=== PATIENT | female | born 1985 | race Two or more races ===

== ENCOUNTER 2020-04-02 16:49 | Emergency (ER) | payer OTHER ==
[~2020-04-02] VITALS: Ht 167.6 cm; Wt 54.4 kg
[2020-04-02] MEDS ORDERED: Lidocaine 1% Plain 30 ml INJ ONE (17:00)
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
[2020-04-02 17:08] VITALS: BP 128/79
[2020-04-02] MEDS ORDERED: TYLENOL EXTRA500 MG ORAL (17:11)
[2020-04-02] MEDS ORDERED: Acetaminophen 500mg (ES) tab ORAL ONE (18:00)
[2020-04-02] MEDS ORDERED: Bacitracin Oint UD TOPIC ONE ×2 (18:30→18:45)
[2020-04-02] MEDS ORDERED: NORCO 5-325 TA1 EAC1 ORAL (19:06)
[2020-04-02] MEDS ORDERED: CEPHALEXIN500 MG ORAL (19:06)
[2020-04-02] MEDS ORDERED: SUDAFED 12-HOU120 MG PO (19:06)
[2020-04-02 19:30] VITALS: BP 125/78
[2020-04-02] MEDS ORDERED: HYDROcodone/Acetamin 5/325 tab ORAL ONE (19:30)
[2020-04-02] MEDS ORDERED: Pseudoephedrine 30mg tab ORAL ONE (19:30)
[2020-04-02] MEDS ORDERED: Cephalexin 250mg/5ml Susp 100mL Bottle ORAL ONE (19:30)
[2020-04-02] MEDS ORDERED: Polysporin Oint 15gm TOPIC SCH (21:00)
== END 2020-04-02 19:30 | disposition home or self-care (01) ==
LOC: EDBD 16:49 → EMR 17:10
DX: S01.81XA Laceration without foreign body of other part of head, initial encounter (principal); S02.31XA Fracture of orbital floor, right side, initial encounter for closed fracture; S01.111A Laceration without foreign body of right eyelid and periocular area, initial encounter; S09.90XA Unspecified injury of head, initial encounter; S02.831A Fracture of medial orbital wall, right side, initial encounter for closed fracture; Y04.2XXA Assault by strike against or bumped into by another person, initial encounter; Y92.9 Unspecified place or not applicable
CPT/HCPCS: 12014; 70450; 72125; 99284; J2001; J8540

== ENCOUNTER 2020-04-04 15:51 | Emergency (ER) | payer OTHER ==
[~2020-04-04] VITALS: Ht 160 cm; Wt 49.9 kg
[~2020-04-04 15:51] MED LIST: CEPHALEXIN500 MG ORAL; NORCO 5-325 TA1 EAC1 ORAL; SUDAFED 12-HOU120 MG PO; TYLENOL EXTRA500 MG ORAL
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
[2020-04-04 16:09] VITALS: BP 121/74
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
[2020-04-04] MEDS ORDERED: Bacitracin Oint UD TOPIC ONE (16:30)
[2020-04-04 16:50] VITALS: BP 128/76
--- NOTE | 2020-04-04 16:50 | NUR ---
ED Nurse Note: Pt's wound dressed. Pt to come back in 4-5 days per ED PA. Pt cleared by health care Provider for discharge. DC instructions/prescription was given and explained to pt and verbalized understanding of teachings. All medical deviecs such as ID band removed. Pt is AAO x4, ambulatory and left with all personal belongings.
== END 2020-04-04 16:50 | disposition home or self-care (01) ==
LOC: EMR 16:20
DX: S01.111A Laceration without foreign body of right eyelid and periocular area, initial encounter (principal); X58.XXXA Exposure to other specified factors, initial encounter; Y92.9 Unspecified place or not applicable
CPT/HCPCS: 99281